=== PATIENT | male | born 1980 | race African-American/Black ===

== ENCOUNTER 2017-03-01 16:02 | Inpatient (IN) | payer BC ==
[~2017-03-01] VITALS: Ht 172.7 cm; Wt 77.7 kg
[2017-03-01 16:42] LABS: BASOPHILS % 0.7 % (0.0-2.0); CHLORIDE 104 mEq/L (98-107); EOSINOPHILS % 0.3 % (0.0-5.0); HEMATOCRIT. 45.2 % (42.0-52.0); HEMOGLOBIN. 15.2 g/dL (14.0-18.0); LYMPHOCYTES % 42.6 % (20.0-50.0); MEAN CORPUSCULAR HEMOGLOBIN 27.5 pg (28.0-32.0); MEAN CORPUSCULAR VOLUME 81.9 fL (80.0-94.0); MEAN PLATELET VOLUME 8.1 fl (7.4-10.4); MONOCYTES % 7.3 % (2.0-8.0); NEUTROPHILS % 49.1 % (40.0-76.0); PLATELET 172 x1000/uL (130-400); RED BLOOD CELL COUNT 5.52 mill/uL (4.7-6.1); RED CELL DISTRIBUTION WIDTH 14.2 % (11.6-14.6)
[2017-03-01 16:43] LABS: INR 1.1; PROTHROMBIN TIME 10.9 sec (9.4-11.6)
[2017-03-01 16:50] LABS: CARBON DIOXIDE 31 mEq/L (21-32)
[2017-03-01] MEDS ORDERED: ASPIRIN 325MG EC TABLET PO ONE (17:15)
[2017-03-01 21:57] VITALS: BP 131/80
[2017-03-01 22:30] VITALS: BP 117/72
[2017-03-01] MEDS ORDERED: POTASSIUM CHLORIDE 20MEQ TABLET SR PO NR (23:37)
[2017-03-02 01:23] VITALS: BP 117/72
[2017-03-02 04:00] VITALS: BP 109/64
[2017-03-02 08:00] VITALS: BP 123/78
[2017-03-02] MEDS: ASPIRIN 325MG EC TABLET PO SCH (08:08)
[2017-03-02 08:22] LABS: CHLORIDE 106 mEq/L (98-107)
[2017-03-02 08:51] LABS: CARBON DIOXIDE 26 mEq/L (21-32); HDL CHOLESTEROL 44 mg/dL (40-59); LDL CHOLESTEROL 117 mg/dL (5-100)
[2017-03-02 16:00] VITALS: BP 106/70
[2017-03-02 16:28] LABS: *AMPHETAMINES SCREEN URINE NEGATIVE (NEGATIVE); *BARBITURATES SCREEN URINE NEGATIVE (NEGATIVE); *BENZODIAZEPINES SCREEN URINE NEGATIVE (NEGATIVE); *COCAINE SCREEN URINE NEGATIVE (NEGATIVE); CANNABINOID URINE SCREEN NEGATIVE (NEGATIVE); METHADONE URINE SCREEN NEGATIVE (NEGATIVE); OPIATES URINE SCREEN NEGATIVE (NEGATIVE); PHENCYCLIDINE URINE SCREEN NEGATIVE (NEGATIVE)
[2017-03-02 17:43] LABS: INR 1.1; PARTIAL THROMBOPLASTIN TIME 28.1 sec (23.4-31.0)
[2017-03-02 20:00] VITALS: BP 117/60
[2017-03-02] MEDS ORDERED: ATORVASTATIN CALCIUM 20MG TABLET PO SCH (21:00)
[2017-03-03] VITALS: BP 125/54
[2017-03-03 04:00] VITALS: BP 94/64
[2017-03-03 08:00] VITALS: BP 108/52
[2017-03-03] MEDS: ASPIRIN 325MG EC TABLET PO SCH (08:26)
[2017-03-03 12:00] VITALS: BP 124/68
[2017-03-03 15:31] VITALS: BP 124/68
[2017-03-05 10:12] LABS: DRVVT LA 49.1 sec (0.0-47.0); DRVVT MIX LA 42.6 sec (0.0-47.0); PROTEIN C FUNCTIONAL 106 % (73-180); PTT-LA 39.3 sec (0.0-51.9)
[2017-03-05 13:11] LABS: ANA IFA Negative (.); LUPUS ANTICOAG INTERPRETATION Comment: (.)
[2017-03-06 04:18] LABS: ANTI-CARDIOLIPIN AB IGM 9 MPL U/mL (0-12)
== END 2017-03-03 15:50 | disposition home or self-care (01) | DRG 69 ==
LOC: ER 16:02 → 5WST 18:17 → EDBEDREQ 18:19 → ENRESERV 19:45
PROVIDERS: ADMIT Internal Medicine; ATTEND Internal Medicine
DX: G45.9 Transient cerebral ischemic attack, unspecified (principal)
CPT/HCPCS: 36415; 70450; 70551; 71010; 80048; 80053; 80061; 80305; 85025; 85044; 85303; 85306; 85610; 85613; 85660; 85730; 85732; 86147; 86256; 93005; 93306; 93880; 99285